=== PATIENT | female | born 1950 | race Native Hawaiian/Other Pacific Islander ===

== ENCOUNTER 2018-10-09 15:51 | Outpatient (CLI) | payer OTHER | END 2018-10-09 19:44 | disposition home or self-care (01) | LOC: RAD 15:51 | DX: J20.9 Acute bronchitis, unspecified (principal) ==

== ENCOUNTER 2019-05-27 12:14 | Outpatient (CLI) | payer OTHER | END 2019-05-27 20:26 | disposition home or self-care (01) | LOC: RAD 12:14 | DX: J20.9 Acute bronchitis, unspecified (principal) ==

== ENCOUNTER 2020-07-08 16:24 | Outpatient (CLI) | payer OTHER | END 2020-07-08 21:11 | disposition home or self-care (01) | LOC: RAD 16:24 | PROVIDERS: ATTEND Nurse Practitioner Family | DX: R10.84 Generalized abdominal pain (principal) ==

== ENCOUNTER 2020-07-12 19:08 | Outpatient (CLI) | payer OTHER | END 2020-07-12 19:42 | disposition home or self-care (01) | LOC: LAB 19:08 | PROVIDERS: ATTEND Nurse Practitioner Family | DX: R10.84 Generalized abdominal pain (principal) | CPT/HCPCS: 82272; 83630; 87015; 87045; 87328; 87329; 87899 ==

== ENCOUNTER 2021-01-04 12:47 | Outpatient (CLI) | payer OTHER | END 2021-01-04 21:49 | disposition home or self-care (01) | LOC: US 12:47 | PROVIDERS: ATTEND Nurse Practitioner Family | DX: S30.1XXA Contusion of abdominal wall, initial encounter (principal) ==

== ENCOUNTER 2021-01-07 09:54 | Outpatient (CLI) | payer OTHER | END 2021-01-07 22:42 | disposition home or self-care (01) | LOC: CT 09:54 | PROVIDERS: ATTEND Nurse Practitioner Primary Care | DX: S30.1XXA Contusion of abdominal wall, initial encounter (principal) | CPT/HCPCS: 36415; 82565; 84520; Q9963 ==